=== PATIENT | female | born 1975 | race African-American/Black ===

== ENCOUNTER 2016-08-02 14:12 | Emergency (ER) | payer BC, OTHER ==
[~2016-08-02] VITALS: Ht 149.9 cm; Wt 68.0 kg
[~2016-08-02 14:12] MED LIST: BACITRACIN15 GM TOPIC; BACTRIM-DS1 EA ORAL; BACTROBAN22 GM TP; UNOBMED; VIBRAMYCIN100 MG PO
[2016-08-02] MEDS ORDERED: NKM (14:22)
[2016-08-02 14:27] VITALS: BP 121/79
--- NOTE | 2016-08-02 14:35 | Emergency Room Report ---
History of Present Illness General Chief Complaint: Skin Rash/Abscess Source: Patient Present Illness HPI 41-year-old female presents emergency department complaining of pain, swelling, tenderness to the right side of her face x2 weeks. Patient states that swelling has progressed despite using warm compresses. Patient reports pain 5/ 10 in severity and tenderness which is exacerbated upon palpation. She denies fevers chills, difficulty opening her bowel, denies swollen lymph nodes. Patient states she has a history of skin abscesses in the past. Denies CP, Palpitations, LOC, AMS, dizziness, Changes in Vision, Sensation, paresthesias, or a sudden severe headache. Allergies: Coded Allergies: CEPHALEXIN MONOHYDRATE (Verified Allergy, Intermediate, Hives, 02/10/12) Patient History Past Medical History: see triage record Past Surgical History: none Pertinent Family History: none Last Menstrual Period: 06/2016 Now: No Immunizations: UTD Reviewed Nursing Documentation: PMH: Agreed, PSxH: Agreed Nursing Documentation-PMH Past Medical History: No History, Except For Hx Neurological Problems: No - HX. OF HYPERTHYROIDISM Review of Systems All Other Systems: negative except mentioned in HPI Physical Exam Vital Signs Date Time Temp Pulse Resp B/P Pulse Ox O2 Delivery O2 Flow Rate FiO2 08/02/ 14:18 98.2 98 16 118/77 98 Room Air Sp02 EP Interpretation: reviewed, normal General Appearance: no apparent distress, alert, GCS 15, non-toxic Head: normocephalic, atraumatic Eyes: bilateral eye PERRL, bilateral eye normal inspection ENT: hearing grossly normal, normal pharynx, no angioedema, normal voice Neck: full range of motion, supple/symm/no masses Respiratory: chest non-tender, lungs clear, normal breath sounds, speaking full sentences Cardiovascular #1: regular rate, rhythm, no edema, normal capillary refill Musculoskeletal: back normal, gait/station normal, normal range of motion, non- tender Neurologic: alert, oriented x3, responsive, motor strength/tone normal, sensory intact, speech normal Psychiatric: judgement/insight normal, memory normal, mood/affect normal, no suicidal/homicidal ideation Skin: normal color, no rash, warm/dry, well hydrated, other - 2cm abscess to the right cheek/jaw line, erythema, fluctuance and tenderness to palpation. Lymphatic: no adenopathy Procedures Incision and Drainage Incision and Drainage : Consent: Verbal Site: right jawline/cheek Blade Size: 20g needle I & D Procedure: betadine prep Wound's Depth, Shape: superficial Wound Length (cm): 0 Wound Explored: contaminated - purulent yellow d/c expressed Anesthesia: 1% Lidocaine Volume Anesthetic (ccs): 1 Splint Applied?: No Sling Applied?: No Patient Tolerated: Well Complications: None Medical Decision Making PA Attestation Dr. Corona is my supervising Physician whom patient management has been discussed with. Diagnostic Impression: Primary Impression: Abscess ER Course Pt. presents to the ED c/o pain, swelling, and erythema of right side of the jaw/cheek line x 2 weeks. Ddx considered but are not limited to cellulitis, abscess, cystic acne, necrotizing fasciitis, insect bite. Vital signs: are WNL, pt. is afebrile H&PE are most consistent with abscess. ORDERS: none required at this time, the diagnosis is clinical ED INTERVENTIONS: -I & D. -bacitracin and sterile dressing is applied. DISCHARGE: At this time pt. is stable for d/c to home. Will provide printed patient care instructions, and any necessary prescriptions. Care plan and follow up instructions have been discussed with the patient prior to discharge. Last Vital Signs Date Time Temp Pulse Resp B/P Pulse Ox O2 Delivery O2 Flow Rate FiO2 08/02/16 14:27 98.1 94 15 121/79 99 Room Air Disposition: HOME, SELF-CARE Condition: Stable Scripts Doxycycline Hyclate* (VIBRAMYCIN*) 100 Mg Capsule 100 MG ORAL EVERY 12 HOURS for 7 Days, #14 CAP 0 Refills Prov: Keri Sarabia 08/02/16 Patient Instructions: Abscess Additional Instructions: Take medications as directed. Follow up with PCP in 3-5 days Return sooner to ED if new symptoms occur, or current symptoms become worse. - Please note that this Emergency Department Report was dictated using [employer] technology software, occasionally this can lead to erroneous entry secondary to interpretation by the dictation equipment. Keri Sarabia Aug 02, 2016 14:35
[2016-08-02] MEDS ORDERED: VIBRAMYCIN100 MG ORAL (14:38)
[2016-08-02] MEDS ORDERED: Lidocaine 1% MPF 10mg/ml 5ml IM ONE (14:45)
[2016-08-02] MEDS ORDERED: Bacitracin Oint UD TOPIC ONE (15:00)
[2016-08-02 15:06] VITALS: BP 121/79
== END 2016-08-02 15:07 | disposition home or self-care (01) ==
LOC: EMR 14:30
DX: L02.01 Cutaneous abscess of face (principal); E05.90 Thyrotoxicosis, unspecified without thyrotoxic crisis or storm; Z88.1 Allergy status to other antibiotic agents
CPT/HCPCS: 10060

== ENCOUNTER 2019-02-20 04:42 | Emergency (ER) | payer OTHER ==
[~2019-02-20] VITALS: Ht 149.9 cm; Wt 75.3 kg
[~2019-02-20 04:42] MED LIST changes: +NKM; +VIBRAMYCIN100 MG ORAL
--- NOTE | 2019-02-20 04:50 | NUR ---
ED Nurse Note: pt ambulated to ed c/o left upper and lower quadrant abdominal pain radiating to back with nausea x 0200 today. PATIENT AAOX4. VSS. FACIAL GRIMACING NOTED. ACCOMPANIED BY FAMILY MEMBER. UNABLE TO LAY DOWN STRAIGHT.
--- NOTE | 2019-02-20 05:00 | NUR ---
ED Nurse Note: IV ACCESS ESTABLISHED. BLOOD AND URINE COLLECTED; SENT DOWN TO LAB
[2019-02-20] MEDS ORDERED: Acetaminophen 500mg (ES) tab ORAL ONE (05:15)
--- NOTE | 2019-02-20 05:19 | Emergency Room Report ---
History of Present Illness General Chief Complaint: Abdominal Pain Source: Patient (Kana Duarte MD) Present Illness HPI 43-year-old female presents with sudden onset of left lower abdominal pain 2 hours prior to arrival, sharp in nature, squeezing, constant no aggravating relieving factors severity is severe, she endorses some nausea, no fevers no chills no diarrhea, patient denies any chest pain, patient reports that her daughter is also sick but with different symptoms, patient presents for evaluation. (Kana Duarte MD) Allergies: Coded Allergies: CEPHALEXIN MONOHYDRATE (Verified Allergy, Intermediate, Hives, 02/10/12) Patient History Past Medical History: see triage record Last Menstrual Period: 02/17/19 Now: No Reviewed Nursing Documentation: PMH: Agreed; PSxH: Agreed (Kana Duarte MD) Nursing Documentation-PMH Past Medical History: No Stated History Hx Neurological Problems: No - HX. OF HYPERTHYROIDISM (Kana Duarte MD) Review of Systems All Other Systems: negative except mentioned in HPI (Kana Duarte MD) Physical Exam Vital Signs Date Time Temp Pulse Resp B/P (MAP) Pulse Ox O2 Delivery O2 Flow Rate FiO2 02/20/19 04:44 97.9 101 20 116/79 (91) 100 Room Air Sp02 EP Interpretation: reviewed, normal General Appearance: alert, mild distress Head: normocephalic, atraumatic Eyes: bilateral eye PERRL, bilateral eye EOMI ENT: uvula midline, moist mucus membranes Neck: supple, thyroid normal, supple/symm/no masses Respiratory: lungs clear, no respiratory distress, no retraction, no accessory muscle use Cardiovascular #1: normal peripheral pulses, regular rate, rhythm, no edema, no gallop, no murmur Gastrointestinal: non tender, soft, no guarding, no rebound Musculoskeletal: normal inspection Neurologic: alert, oriented x3 Psychiatric: mood/affect normal Skin: no rash, warm/dry (Kana Duarte MD) Medical Decision Making Diagnostic Impression: Primary Impression: Abdominal pain Qualified Codes: R10.32 - Left lower quadrant pain Additional Impression: Kidney stone on left side ER Course 43-year-old female presents with sudden onset left lower quadrant pain differential diagnosis includes nephrolithiasis, diverticulitis, appendicitis Pain controlled with morphine Toradol, fluids started CT pending Patient signed out to Dr. Montaño (Kana Duarte MD) ER Course Patient was signed out to me for final disposition. I have also evaluated the patient. Patient does have left flank pain to percussion. Differential diagnosis include kidney stones, back strain, gastroenteritis, endometriosis, pelvic pain. Patient's laboratory work-up shows evidence of blood in the urine. However patient is currently on her period. Because severely patient's pain a CT scan was performed. CT scan however shows bilateral kidney stones. There is some mild hydronephrosis bilaterally. Patient did receive pain medications and fluids and feels much better. Given the patient is feeling better and the kidney stones are 5 mm and 6 mm patient likely can be treated as an outpatient. Patient was advised to follow-up with outpatient urology. Patient states that she has her own doctors at [facility] and that will show follow-up. Therefore patient was advised to follow-up there and advised to return to emergency room for any worsening symptoms and as needed. Patient is advised to follow up with primary doctor in 2-3 days and return the emergency room for any worsening symptoms and as needed. Labs Test 02/20/19 05:00 White Blood Count 11.3 K/UL (4.8-10.8) Red Blood Count 4.33 M/UL (4.20-5.40) Hemoglobin 12.4 G/DL (12.0-16.0) Hematocrit 37.9 % (37.0-47.0) Mean Corpuscular Volume 88 FL (80-99) Mean Corpuscular Hemoglobin 28.6 PG (27.0-31.0) Mean Corpuscular Hemoglobin Concent 32.6 G/DL (32.0-36.0) Red Cell Distribution Width 14.2 % (11.6-14.8) Platelet Count 473 K/UL (150-450) Mean Platelet Volume 5.4 FL (6.5-10.1) Neutrophils (%) (Auto) 71.3 % (45.0-75.0) Lymphocytes (%) (Auto) 17.4 % (20.0-45.0) Monocytes (%) (Auto) 5.3 % (1.0-10.0) Eosinophils (%) (Auto) 5.2 % (0.0-3.0) Basophils (%) (Auto) 0.9 % (0.0-2.0) Urine Color Pale yellow Urine Appearance Clear Urine pH 5 (4.5-8.0) Urine Specific [place] 1.015 (1.005-1.035) Urine Protein 1+ (NEGATIVE) Urine Glucose (UA) Negative (NEGATIVE) Urine Ketones Negative (NEGATIVE) Urine Blood 5+ (NEGATIVE) Urine Nitrite Negative (NEGATIVE) Urine Bilirubin Negative (NEGATIVE) Urine Urobilinogen Normal MG/DL (0.0-1.0) Urine Leukocyte Esterase Negative (NEGATIVE) Urine RBC 40-60 /HPF (0 - 2) Urine WBC 0-2 /HPF (0 - 2) Urine Squamous Epithelial Cells Few /LPF (NONE/OCC) Urine Bacteria None /HPF (NONE) Urine HCG, Qualitative Negative (NEGATIVE) Sodium Level 140 MMOL/L (136-145) Potassium Level 3.8 MMOL/L (3.5-5.1) Chloride Level 106 MMOL/L (98-107) Carbon Dioxide Level 25 MMOL/L (21-32) Anion Gap 10 mmol/L (5-15) Blood Urea Nitrogen 13 mg/dL (7-18) Creatinine 1.1 MG/DL (0.55-1.30) Estimat Glomerular Filtration Rate > 60 mL/min (>60) Glucose Level 120 MG/DL (74-106) Calcium Level 9.7 MG/DL (8.5-10.1) Total Bilirubin 0.4 MG/DL (0.2-1.0) Aspartate Amino Transf (AST/SGOT) 15 U/L (15-37) Alanine Aminotransferase (ALT/SGPT) 19 U/L (12-78) Alkaline Phosphatase 115 U/L (46-116) Total Protein 8.0 G/DL (6.4-8.2) Albumin 3.6 G/DL (3.4-5.0) Globulin 4.4 g/dL Albumin/Globulin Ratio 0.8 (1.0-2.7) Lipase 243 U/L (73-393) Human Chorionic Gonadotropin, Quant < 1 mIU/mL (1-6) (Kody Montaño MD) Rhythm Strip Diag. Results Rhythm Strip Time: 05:19 EP Interpretation: yes Rate: 87 Rhythm: NSR, no PVC's, no ectopy (Kana Duarte MD) Last Vital Signs Date Time Temp Pulse Resp B/P (MAP) Pulse Ox O2 Delivery O2 Flow Rate FiO2 02/20/19 04:44 97.9 101 20 116/79 (91) 100 Room Air (Kana Duarte MD) Status: improved (Kody Montaño MD) Disposition: HOME, SELF-CARE Condition: Stable Scripts Tamsulosin HCl (Flomax) 0.4 Mg Cap.er.24h 0.4 MG ORAL DAILY for 7 Days, CAP Prov: Kody Montaño MD 02/20/19 Ibuprofen* (MOTRIN*) 600 Mg Tablet 600 MG ORAL Q8H PRN for For Pain, #20 TAB 0 Refills Prov: Kody Montaño MD 02/20/19 Hydrocodone Bit/Acetaminophen 5-325* (NORCO 5-325*) 1 Each Tablet 1 TAB ORAL Q6H PRN for For Pain, #20 TAB 0 Refills Prov: Kody Montaño MD 02/20/19 Referrals: [facility] (PCP) Additional Instructions: The patient was provided with discharge instructions, notified to follow-up with a primary care doctor and or specialist in the next 24-48 hours, and to return to the ED if they have worsening of their symptoms. Please note that this report is being documented using [employer] technology. This can lead to erroneous entry secondary to incorrect interpretation by the dictating instrument. Kana Duarte MD Feb 20, 2019 05:19 Kody Montaño MD Feb 20, 2019 08:34
--- NOTE | 2019-02-20 05:28 | NUR ---
ED Nurse Note: RECEIVED VERBAL ORDER FROM DARREN MCCORMACK TO CANCEL 2ND ZOFRAN 4MG IV AND TYLENOL 1000MG PO ORDED; ORDERED IN ERROR. MEDICATED PATIENT WITH MORPHINE AND TORADOL; PATIENT TOLERATED WELL. WILL CONTINUE TO MONITOR.
[2019-02-20 05:30] VITALS: BP 116/79
[2019-02-20] MEDS ORDERED: Ketorolac 30mg Inj IV ONE (05:30)
[2019-02-20] MEDS ORDERED: Omnipaque-300 100ml vial INJ PRN (05:30)
[2019-02-20] MEDS ORDERED: Morphine Sulfate 4mg/ml Inj (IV USE ONLY) IVP ONE (05:30)
[2019-02-20 05:39] LABS: APPEARANCE,URINE CLEAR; BASOPHILS % (AUTO) 0.9 % (0.0-2.0); BILIRUBIN, URINE NEGATIVE (NEGATIVE); COLOR,URINE PALE YELLOW; EOSINOPHILS % (AUTO) 5.2 % (0.0-3.0); GLUCOSE, URINE (UA) NEGATIVE (NEGATIVE); HEMATOCRIT 37.9 % (37.0-47.0); HEMOGLOBIN 12.4 G/DL (12.0-16.0); KETONES,URINE NEGATIVE (NEGATIVE); LEUKOCYTE ESTERASE ,URINE NEGATIVE (NEGATIVE); LYMPHOCYTES % (AUTO) 17.4 % (20.0-45.0); MEAN CORPUSCULAR VOLUME 88 FL (80-99); MONOCYTES % (AUTO) 5.3 % (1.0-10.0); NEUTROPHILS % (AUTO) 71.3 % (45.0-75.0); NITRITE,URINE NEGATIVE (NEGATIVE); PH,URINE 5 (4.5-8.0); PLATELET COUNT 473 K/UL (150-450); PROTEIN,URINE 1+ (NEGATIVE); RED BLOOD COUNT 4.33 M/UL (4.20-5.40); RED CELL DISTRIBUTION WIDTH 14.2 % (11.6-14.8); UROBILINOGEN,URINE NORMAL MG/DL (0.0-1.0); WHITE BLOOD COUNT 11.3 K/UL (4.8-10.8)
--- NOTE | 2019-02-20 05:59 | NUR ---
ED Nurse Note: PATIENT REPORTS RELIEF OF PAIN 0/10. ABLE TO LAY DOWN COMFORTABLY. NO ACUTE DISTRESS. VITALS STABLE. PENDING IMAGING.
--- NOTE | 2019-02-20 06:16 | NUR ---
ED Nurse Note: PATIENT DOWN TO CT VIA WHEELCHAIR ASSIST WITH HIDE BUYER. PATIENT REMAINS PAIN FREE; STEADY GAIT. DENIES NAUSEA.
--- NOTE | 2019-02-20 06:25 | NUR ---
ED Nurse Note: CALLED LAB TO FOLLOW UP WITH BLOOD CHEMISTRY; PER CLS, RESULTS PENDING.
[2019-02-20 06:33] LABS: ANION GAP 10 mmol/L (5-15); BLOOD UREA NITROGEN 13 mg/dL (7-18); CALCIUM 9.7 MG/DL (8.5-10.1); CARBON DIOXIDE 25 MMOL/L (21-32); CHLORIDE 106 MMOL/L (98-107); CREATININE 1.1 MG/DL (0.55-1.30); POTASSIUM 3.8 MMOL/L (3.5-5.1); SODIUM 140 MMOL/L (136-145)
[2019-02-20 06:37] LABS: ALANINE AMINOTRANSFERASE 19 U/L (12-78); ALBUMIN 3.6 G/DL (3.4-5.0); ALBUMIN/GLOBULIN RATIO 0.8 (1.0-2.7); ALKALINE PHOSPHATASE 115 U/L (46-116); ASPARTATE AMINO TRANSFERASE 15 U/L (15-37); BILIRUBIN,TOTAL 0.4 MG/DL (0.2-1.0)
--- NOTE | 2019-02-20 07:00 | NUR ---
ED Nurse Note: PT BACK FROM CT.
--- NOTE | 2019-02-20 07:12 | NUR ---
HAND-OFF: Report given to IMTIAZ WHITLOCK. ENDORSED PENDING CT RESULTS. PATIENT AOO4 RELAXING IN BED WITH NO ACUTE DISTRESS; REMAINS PAIN FREE. IV INTACT AND PATENT.
--- NOTE | 2019-02-20 07:13 | NUR ---
ED Nurse Note: Recevied patient in bed, patient reports no pain at this time. patient is resting in bed. patient's daughter at bedside.
--- NOTE | 2019-02-20 07:23 | Diagnostic Imaging Report ---
Indication: Abdominal pain Technique: Continuous helical transaxial imaging of the abdomen and pelvis was obtained from the lung bases to the pubic symphysis during intravenous contrast administration. Coronal 2-D reformats were also obtained. Study obtained in a Siemens sensation [address] Automatic Exposure Control was utilized. Total Dose length Product (DLP): 856.[address] Dose Index Volume (CTDIvol): 15.7 mGy Comparison: None Findings: There is minimal basal atelectasis. There is a body habitus related artifact and limitation on this exam. There is mild left hydroureteronephrosis secondary to mid ureteral stone measuring about 5 mm. There is no perinephric stranding. On the right there is a 5 mm UPJ stone associated with minimal hydronephrosis if any. The distal segments of both ureters are poorly seen on this study. The bladder is unremarkable. There is an intrauterine device present. The appendix is not definitely seen. There are no secondary signs of acute appendicitis. There is no evidence of bowel obstruction, free fluid or free air. The liver and spleen, pancreas and adrenal glands, gallbladder appear unremarkable. IMPRESSION: Bilateral intraureteral stones. On the right, 5 mm UPJ stone with minimal hydronephrosis. On the left, 5 mm stone within the mid left ureter with the mild hydronephrosis. IUD Limited evaluation due to body [facility] has communicated the preliminary results to the Emergency Department. Their findings are largely concordant with this report. The CT scanner at [facility] is accredited by the [employer] and the scans are performed using dose optimization techniques as appropriate to a performed exam including Automatic Exposure control.
[2019-02-20 07:38] VITALS: BP 108/68
[2019-02-20] MEDS ORDERED: NORCO 5-325 TA1 EACH ORAL (08:29)
[2019-02-20] MEDS ORDERED: IBUPROFEN600 MG ORAL (08:29)
[2019-02-20] MEDS ORDERED: FLOMAX0.4 MG ORAL (08:29)
[2019-02-20 08:48] VITALS: BP 108/68
--- NOTE | 2019-02-20 08:48 | NUR ---
ER DISCHARGE NOTE: Patient is cleared to be discharged per ERMD DR STRONG, pt is aox4, on room air, with stable vital signs. pt was given dc and prescription instructions, pt was able to verbalize understanding, pt id band and iv site removed without complications. pt is able to ambulate with steady gait with her daughter. pt took all belongings.
== END 2019-02-20 08:48 | disposition home or self-care (01) ==
LOC: EMR 05:00
DX: N20.0 Calculus of kidney (principal); R10.32 Left lower quadrant pain; E05.90 Thyrotoxicosis, unspecified without thyrotoxic crisis or storm; Z88.1 Allergy status to other antibiotic agents
CPT/HCPCS: 36415; 74177; 80053; 81003; 81025; 83690; 84702; 85025; 96361; 96374; 96375; 99284; J1885; J2270; J2405; Q9967